=== PATIENT | female | born 1975 | race Caucasian/White ===

== ENCOUNTER 2019-10-27 08:59 | Emergency (ER) | payer MEDICAID, SELFPAY ==
[2019-10-27 09:04] VITALS: BP 129/73; PULSE 94; RESP 18; TEMP 36.7; O2SAT 98; BMI 36.6
--- NOTE | 2019-10-27 09:15 | US_ITS ---
WS: [id number] TRANSABDOMINAL PELVIC AND TRANSVAGINAL PELVIC ULTRASOUND HISTORY: abnormal heavy vaginal bleeding COMPARISON: 02/01/2013 Uterus: 7.6 cm x 4.1 cm x 2.5 cm. Anteverted uterus. Uterus is heterogeneous and poorly visualized du e to body habitus. There is a markedly abnormal appearance to the cervix. Cervix is distended and enlarged and contains mobile mixed echogenic debris along the cervical canal. Endometrium: Markedly enlarged endometrium and endometrial canal. A discrete measurement of the endom etrium is not possible. There is mobile echogenic debris within the endometrium. Diameter of the dist ended endometrium is at least 2.3 cm. There is mixed echogenicity and nodularity along the endometria l canal. Right ovary: 2.9 cm x 2.2 cm x 2.5 cm. Normal size and echogenicity. Left ovary: 3.1 cm x 2.9 cm x 2.1 cm. Normal size and echogenicity. No free fluid. US/US pelvic with transvaginal IMPRESSION: 1. Markedly abnormal endocervical canal. Endocervical canal is distended with mobile echogenic debris consistent with retained blood products. There is also nodularity along the endometrium which could be a polyp or neoplasm which is ca using the bleeding. 2. Recommend CASING CREW evaluation.
--- NOTE | 2019-10-27 09:19 | W.ED.FEMALGU ---
HPI - Female Genitourinary General: Chief complaint: Vaginal Bleeding Stated complaint: Abn pain, bleeding Time Seen by Provider: 10/27/19 09:14 Source: patient Mode of arrival: ambulatory Limitations: no limitations History of Present Illness: HPI Narrative: Patient comes in today for concerns of heavy vaginal bleeding. Patient states that yesterday she had been spotting but this morning she woke up with increased cramping and heavy vaginal bleeding. Patient reports last period was about 6 months ago. Patient appears well. Patient appears in no acute distress. Patient does look in mild to moderate pain. Review of Systems General: Reports: 10 or more systems reviewed and unremarkable except in HPI and below : Reports: vaginal bleeding, painful menstruation and change in menstrual flow PFSH ED PFSH: Statuses (acute, chronic, etc) shown below reflect problem list status as previously entered and may not be historically accurate Social History Smoking and tobacco status: never smoked Physical Exam Const: COMMON NORMALS: no apparent distress and oriented x3 GENERAL APPEARANCE: cooperative HENMT: COMMON NORMALS: normocephalic, external ears normal, EAC's normal, TM's normal bilaterally and external nose normal HEAD & SCALP: normal to inspection and normocephalic FACE & SINUS: normal facial exam NOSE: external nose normal GENERAL EAR: hearing not grossly impaired EXTERNAL EAR: Yes external ears normal EXTERNAL AUDITORY CANAL: EAC's normal TYMPANIC MEMBRANE: TM's normal bilaterally MOUTH: oral and palatal mucosa normal THROAT: posterior oropharynx normal Eye: COMMON NORMALS: PERRL and EOMs intact bilaterally PUPIL: Yes PERRL Neck/C-Spine: COMMON NORMALS: full ROM and no lymphadenopathy Lymph: LYMPHATIC: no lymphedema noted Chest: COMMONS NORMALS: inspection of chest normal and palpation of chest normal Resp: COMMON NORMALS: normal respiratory effort and clear to auscultation bilaterally AUSCULTATION: clear to auscultation bilaterally Cardio: COMMON NORMALS: regular rate and regular rhythm RATE: regular rate RHYTHM: regular rhythm GI: COMMON NORMALS: normal to inspection, nondistended, normoactive bowel sounds and non-tender : COMMON NORMALS: Yes no CVA tenderness BLADDER/KIDNEY EXAM: Yes no CVA tenderness Back/Pelvis: COMMON NORMALS: no CVA tenderness and thoracic and lumbar spine normal to inspection Extremity: COMMON NORMALS: normal to inspection GENERAL: No edema Neuro: COMMON NORMALS: oriented x3, moves all extremities and no focal motor deficits Psych: COMMON NORMALS: mental status grossly normal and cooperative Skin: COMMON NORMALS: no rashes or lesions noted GENERAL SKIN EXAM: no rashes or lesions noted Course ED course: 1112, reviewed US and patient with Dr. Shaw, recommend f/u in office, agreed to plan of OCP titration for bleeding control. wjw Vital Signs: Vital signs: Vital Signs Temperature 98.1 F 10/27/19 09:04 Pulse Rate 81 10/27/19 10:51 Respiratory Rate 18 10/27/19 09:04 Blood Pressure 131/69 10/27/19 10:51 Pulse Oximetry 97 10/27/19 10:51 MDM - Female MDM Narrative: Medical decision making narrative: Patient comes in this morning for concerns of vaginal bleeding. Patient reports that yesterday she had had some spotting and then today started heavily bleeding this morning going through 4 pads and 2 hours. Patient reports some improvement in bleeding since getting to the ER. Patient appears well. Exam notes abdomen is soft with some pelvic tenderness on palpation. Respirations are even lungs are clear to auscultation. Differential diagnosis includes carcinoma, polyp, uterine fibroids, premenopausal syndrome. Mild anemia was noted with a hemoglobin hematocrit at 11.7 and 36.5. Remember laboratory values were normal. Urine showed some red blood cells. Ultrasound of the pelvis noted some abnormalities significant for polyp or other anomaly but nothing conclusive. Consulted Dr. Samaniego who agreed to plan of bleeding control with hormonal therapy and need for follow-up. Lab Data: Labs: Lab Results 10/27/19 10/27/19 10/27/19 Range/Units 09:32 09:39 09:40 WBC 14.3 H (4.0-10.0) 10^3/ uL RBC 4.51 (4.1-5.3) 10^6/u L Hgb 11.7 (11.5-15.3) g/dL Hct 36.5 L (37.0-47.0) % MCV 80.9 L (81-99) fL MCH 25.9 L (28.0-34.0) pg MCHC 32.1 (30.0-36.0) g/dL RDW 13.2 (12.1-15.1) % Plt Count 396 (130-400) 10^3/c mm MPV 9.9 (7.4-10.4) fL Neut % (Auto) 85.1 % Lymph % (Auto) 7.7 % [place] % (Auto) 4.8 % Eos % (Auto) 1.6 % Baso % (Auto) 0.3 % Neut # (Auto) 12.2 H (1.8-7.7) 10^3/u L Lymph # (Auto) 1.1 (0.8-4.8) 10^3/u L [place] # (Auto) 0.7 (0.2-0.9) 10^3/u L Eos # (Auto) 0.2 (0.0-0.8) 10^3/u L Baso # (Auto) 0.0 (0.0-0.1) 10^3/u L Nucleated RBC % (a uto) 0 % Nucleated RBCs # 0.0 /100WBC PT (10.5-13.3) SECO NDS INR (0.8-1.2) APTT (23.9-36.7) SECO NDS Sodium (136-145) mmol/L Potassium (3.5-5.1) mmol/L Chloride (98-107) mmol/L Carbon Dioxide (22-29) mmol/L Anion Gap (5-19) BUN (6-20) mg/dL Creatinine (0.5-0.9) mg/dL GFR Calculation (90-130) mL/min Glucose (74-109) mg/dL POC Glucose 161 (70-110) mg/dL Calcium (8.5-10.5) mg/dL Total Bilirubin (0.15-1.2) mg/dL AST (0-32) U/L ALT (0-33) U/L Alkaline Phosphata se (35-105) IU/L Total Protein (6.6-8.7) g/dL Albumin (3.5-5.2) g/dL Globulin (1.3-4.6) g/dL TSH (0.27-4.20) uIU/ mL HCG, Qual (Negative) Urine Color Yellow (Yellow) Urine Appearance Sl hazy (CLEAR) Urine pH 5 (5-7) Ur Specific Gravit y 1.020 (1.005-1.030) Urine Protein Neg (Negative) Urine Glucose (UA) Trace H (Normal) Urine Ketones 1+ H (Negative) Urine Occult Blood 3+ H (Negative) Urine Nitrate Negative (Negative) Urine Bilirubin Neg (NEGATIVE) Urine Urobilinogen Norm (Negative) mg/dL Ur Leukocyte Hermelinda ase Negative (Negative) Urine RBC 40-50 H (0-2) /hpf Urine WBC 5-10 H (0-5) /hpf Ur Squamous Epith Cells 10-15 H (0-5) Urine Bacteria 1+ H (NONE) Hyaline Casts Rare Urine Mucus 1+ 10/27/19 10/27/19 10/27/19 Range/Units 09:40 09:40 09:40 WBC (4.0-10.0) 10^3/ uL RBC (4.1-5.3) 10^6/u L Hgb (11.5-15.3) g/dL Hct (37.0-47.0) % MCV (81-99) fL MCH (28.0-34.0) pg MCHC (30.0-36.0) g/dL RDW (12.1-15.1) % Plt Count (130-400) 10^3/c mm MPV (7.4-10.4) fL Neut % (Auto) % Lymph % (Auto) % [place] % (Auto) % Eos % (Auto) % Baso % (Auto) % Neut # (Auto) (1.8-7.7) 10^3/u L Lymph # (Auto) (0.8-4.8) 10^3/u L [place] # (Auto) (0.2-0.9) 10^3/u L Eos # (Auto) (0.0-0.8) 10^3/u L Baso # (Auto) (0.0-0.1) 10^3/u L Nucleated RBC % (a uto) % Nucleated RBCs # /100WBC PT 13.80 H (10.5-13.3) SECO NDS INR 1.03 (0.8-1.2) APTT 24.1 (23.9-36.7) SECO NDS Sodium 136 (136-145) mmol/L Potassium 4.3 (3.5-5.1) mmol/L Chloride 101 (98-107) mmol/L Carbon Dioxide 23 (22-29) mmol/L Anion Gap 16.3 (5-19) BUN 9 (6-20) mg/dL Creatinine 0.8 (0.5-0.9) mg/dL GFR Calculation 77.9 L (90-130) mL/min Glucose 190 H (74-109) mg/dL POC Glucose (70-110) mg/dL Calcium 9.5 (8.5-10.5) mg/dL Total Bilirubin 0.2 (0.15-1.2) mg/dL AST 18 (0-32) U/L ALT 7 (0-33) U/L Alkaline Phosphata se 100 (35-105) IU/L Total Protein 6.6 (6.6-8.7) g/dL Albumin 4.3 (3.5-5.2) g/dL Globulin 2.3 (1.3-4.6) g/dL TSH 1.29 (0.27-4.20) uIU/ mL HCG, Qual Negative (Negative) Urine Color (Yellow) Urine Appearance (CLEAR) Urine pH (5-7) Ur Specific Gravit y (1.005-1.030) Urine Protein (Negative) Urine Glucose (UA) (Normal) Urine Ketones (Negative) Urine Occult Blood (Negative) Urine Nitrate (Negative) Urine Bilirubin (NEGATIVE) Urine Urobilinogen (Negative) mg/dL Ur Leukocyte Hermelinda ase (Negative) Urine RBC (0-2) /hpf Urine WBC (0-5) /hpf Ur Squamous Epith Cells (0-5) Urine Bacteria (NONE) Hyaline Casts Urine Mucus Imaging Data: US: Radiologist's impression: 1. Markedly abnormal endocervical canal. Endocervical canal is distended with mobile echogenic debris consistent with retained blood products. There is also nodularity along the endometrium which could be a polyp or neoplasm which is causing the bleeding. 2. Recommend SERVICE STATION MANAGER evaluation. Discharge Plan Discharge Patient Disposition: Home, Self-Care Clinical Impression: Dysfunctional uterine bleeding Condition: Stable Prescriptions: New [place] 3 mg/2 mg-2 mg/ 2 mg-3 mg/1 mg tablet 1 tab PO DAILY Qty: 28 RF: 2 hydrocodone-acetaminophen 5-325 mg tablet 1 tab PO Q6H PRN (Reason: pain) Qty: 10 RF: 0 No Action tizanidine 2 mg Tablet 2 mg PO Q12H RF: 0 trazodone 50 mg Tablet See Rx Instructions .ROUTE .COMPLEX RF: 0 cetirizine [Zyrtec] 10 mg Tablet 10 mg PO DAILY RF: 0 meloxicam [Mobic] 15 mg Tablet 15 mg PO DAILY RF: 0 amitriptyline 50 mg Tablet 50 mg PO BEDTIME RF: 0 bupropion HCl 100 mg Tablet Sustained-Release 12 Hr 100 mg PO BID RF: 0 ranitidine HCl [Zantac] 150 mg Tablet 150 mg PO BID RF: 0 buspirone 10 mg Tablet 10 mg PO TID RF: 0 montelukast [Singulair] 10 mg Tablet 10 mg PO DAILY RF: 0 verapamil 80 mg Tablet 80 mg PO TID RF: 0 Discharge Orders: Discharge Order (Routine); Ordered 10/27/19 Ordered By: Tu Santos Referrals: Sergey Crockett [Primary Care Provider] - Discharge Diet: Usual diet Discharge Activity: Increase activity as tolerated Patient Instructions: Abnormal Uterine Bleeding Activity Restrictions/Additional Instructions: Drink plenty of water with medications Take control pill as directed, 3 tablets for 2 days, 2 tablets for 2 days, then complete routine pack as one daily, skip the placebo days as directed by pharmacist and start new pack, and take routinely Follow-up in one week with OB-SERVICE STATION MANAGER An appointment has been made for November [address] Singh Return to ER for fever or worsening symptoms Coding Level of Care Code ED Regulatory Affairs Intern for Omayra Espitia Exam Problem Focused
[2019-10-27 09:36] LABS: Glucose Point of Care 161 mg/dL (70-110)
--- NOTE | 2019-10-27 09:47 | PC.NURSE ---
portable ultrasound at bedside
[2019-10-27 09:50] LABS: Basophils % 0.3 %; Eosinophils # 0.2 10^3/uL (0.0-0.8); Eosinophils % 1.6 %; Hematocrit 36.5 % (37.0-47.0); Hemoglobin 11.7 g/dL (11.5-15.3); Lymphocytes # 1.1 10^3/uL (0.8-4.8); Lymphocytes % 7.7 %; Mean Corpuscular HGB Conc 32.1 g/dL (30.0-36.0); Mean Corpuscular Hemoglobin 25.9 pg (28.0-34.0); Mean Corpuscular Volume 80.9 fL (81-99); Mean Platelet Volume 9.9 fL (7.4-10.4); Monocytes # 0.7 10^3/uL (0.2-0.9); Monocytes % 4.8 %; Neutrophils # 12.2 10^3/uL (1.8-7.7); Neutrophils % 85.1 %; Nucleated Red Blood Cells % 0 %; Platelet Count 396 10^3/cmm (130-400); Red Blood Count 4.51 10^6/uL (4.1-5.3); Red Cell Distribution Width 13.2 % (12.1-15.1); White Blood Count 14.3 10^3/uL (4.0-10.0)
[2019-10-27] MEDS: sodium chloride 0.9% 500 ML IV (09:53)
[2019-10-27] MEDS: HYDROcodone-acetaminophen 7.5-325 mg Tablet 1 TAB PO (09:53)
[2019-10-27] MEDS: ondansetron 2 mg/ML SDV 2 mL 4 MG IVP (09:53)
[2019-10-27 10:00] LABS: INR 1.03 (0.8-1.2)
[2019-10-27 10:01] LABS: HCG, Serum Qual Negative (Negative); Partial Thromboplastin Time 24.1 SECONDS (23.9-36.7)
[2019-10-27 10:15] LABS: Alanine Aminotransferase 7 U/L (0-33); Albumin Level 4.3 g/dL (3.5-5.2); Alkaline Phosphatase 100 IU/L (35-105); Anion Gap 16.3 (5-19); Aspartate Amino Transferase 18 U/L (0-32); Blood Urea Nitrogen 9 mg/dL (6-20); Calcium 9.5 mg/dL (8.5-10.5); Carbon Dioxide 23 mmol/L (22-29); Chloride 101 mmol/L (98-107); Globulin 2.3 g/dL (1.3-4.6); Glomerular Filtration Rate 77.9 mL/min (90-130); Glucose 190 mg/dL (74-109); Potassium 4.3 mmol/L (3.5-5.1); Sodium 136 mmol/L (136-145); Thyroid Stimulating Hormone 1.29 uIU/mL (0.27-4.20); Total Bilirubin 0.2 mg/dL (0.15-1.2); Total Protein 6.6 g/dL (6.6-8.7)
[2019-10-27 10:17] LABS: Bilirubin Urine Neg (NEGATIVE); Blood Urine 3+ (Negative); Glucose Urine UA Trace (Normal); Ketones Urine 1+ (Negative); Leukocyte Esterase Urine Negative (Negative); Nitrate Urine Negative (Negative); Protein Urine Neg (Negative); Urine Appearance SL Hazy (CLEAR); Urine Color Yellow (Yellow); Urobilinogen Urine Norm (Negative); pH Urine 5 (5-7)
[2019-10-27 10:19] LABS: Hyaline Casts Urine RARE; Mucus Urine 1+
[2019-10-27 10:20] LABS: Bacteria Urine 1+
[2019-10-27 10:21] LABS: Add Urine Culture? Yes; RBC Urine 40-50 /hpf (0-2)
[2019-10-27 10:51] VITALS: BP 131/69; PULSE 81; O2SAT 97
[2019-10-27] MEDS: ketorolac 30 mg/mL INJ 15 MG IVP (11:23)
[2019-10-27 11:27] VITALS: BP 117/70; PULSE 84; O2SAT 97
== END 2019-10-27 11:27 | disposition home or self-care (01) ==
PROVIDERS: Emergency Provider Nurse Practitioner Family; Family Provider Family Medicine; PCP Family Medicine
DX: N93.8 Other specified abnormal uterine and vaginal bleeding (principal)
CPT/HCPCS: 36415; 36416; 76830; 76856; 80053; 81001; 82962; 84443; 84703; 85025; 85610; 85730; 87086; 96360; 96374; 99282; A9270; J1885; J2405; J7040

== ENCOUNTER → 2019-11-06 11:25 | Outpatient (BNVA) | payer MEDICAID, SELFPAY | PROVIDERS: Family Provider Family Medicine; PCP Family Medicine; Visit Provider Obstetrics & Gynecology | DX: E28.2 Polycystic ovarian syndrome (principal); N93.9 Abnormal uterine and vaginal bleeding, unspecified | CPT/HCPCS: 83001; 84146; 84443 ==

== ENCOUNTER → 2019-11-13 08:08 | Outpatient (BNVA) | payer MEDICAID, SELFPAY | PROVIDERS: Family Provider Family Medicine; PCP Family Medicine; Referring Provider Obstetrics & Gynecology; Visit Provider Obstetrics & Gynecology | DX: N93.9 Abnormal uterine and vaginal bleeding, unspecified (principal); R10.2 Pelvic and perineal pain | CPT/HCPCS: 76830; 76856 ==

== ENCOUNTER → 2019-11-21 08:45 | Outpatient (BNVA) | payer MEDICAID, SELFPAY | PROVIDERS: Family Provider Family Medicine; PCP Family Medicine; Referring Provider Obstetrics & Gynecology; Visit Provider Obstetrics & Gynecology | DX: N93.9 Abnormal uterine and vaginal bleeding, unspecified (principal) | CPT/HCPCS: 84146 ==

== ENCOUNTER → 2019-11-30 13:26 | Outpatient (BNVA) | payer MEDICAID, SELFPAY | PROVIDERS: Family Provider Family Medicine; PCP Family Medicine; Visit Provider Obstetrics & Gynecology | DX: E28.2 Polycystic ovarian syndrome (principal) | CPT/HCPCS: 81025 ==

== ENCOUNTER 2019-12-20 07:09 | Day surgery (SDC) | payer MEDICAID, SELFPAY ==
--- NOTE | 2019-12-18 12:18 | ANES.PREANE2 ---
Pre-Anesthetic Assessment Pre-Anesthetic Assessment: Height/Weight: Height 1.65 m Weight 104.326 kg Preop Diagnosis: heavy menstrual bleeding Proposed Procedure: Operation Date: 12/20/19 08:50 Proposed Procedures p Hysteroscopy w/ Myosure 29376 [id number] N93.9(Not Applicable) - Mango Singh MD s Dilation And Curettage (D&C)/Paracervical Block(Not Applicable) - Mango Singh MD Exam: Pre-Anes Outpt Exam: alert, oriented x 3, clear to auscultation bilaterally and regular rate & rhythm Airway: Submandibular: WNL Cervical ROM: WNL MP: 2 Pulmonary: Pulmonary: Asthma Comments: seasonal asthma without inhaler x 1y, breathing feels good GI: GI: GERD Comments: IBS well controlled with ranitinde Metabolic: Metabolic: DM Comments: diet controlled Musc/skel: Musc/skel: Lower Back Pain Comments: nonradiating Neuropsych: Neuropsych: Depression and GUTIERREZ (migranes, last 12/16) Anesthetic Plan: ASA status: 3 Anesthesia: General PFSH Anesthesia PFSH: Social History Smoking and tobacco status: never smoked Alcohol intake: never Female Reproductive History: Date of last menstrual period: 12/18/19 Data Anesthesia Cardiac Studies: No Data to Display
[2019-12-20] VITALS (7 sets, daily range): BP systolic 110–174; BP diastolic 81–99; PULSE 114–128; RESP 14–27; TEMP 36.2–36.6; O2SAT 97–100
[2019-12-20 07:51] LABS: OR HCG Qualitative Urine Negative (Negative)
[2019-12-20] MEDS: ketorolac 30 mg/mL INJ IVP (07:51)
[2019-12-20] MEDS: sodium chloride 0.9% 1,000 ML 30 ML IV (07:52)
[2019-12-20 08:02] LABS: Basophils % 0.5 %; Eosinophils # 0.3 10^3/uL (0.0-0.8); Eosinophils % 3.9 %; Hematocrit 33.6 % (37.0-47.0); Hemoglobin 10.7 g/dL (11.5-15.3); Lymphocytes # 1.5 10^3/uL (0.8-4.8); Lymphocytes % 17.6 %; Mean Corpuscular HGB Conc 31.8 g/dL (30.0-36.0); Mean Corpuscular Hemoglobin 25.7 pg (28.0-34.0); Mean Corpuscular Volume 80.6 fL (81-99); Mean Platelet Volume 9.8 fL (7.4-10.4); Monocytes # 0.8 10^3/uL (0.2-0.9); Monocytes % 9.5 %; Neutrophils # 5.8 10^3/uL (1.8-7.7); Nucleated Red Blood Cells % 0 %; Platelet Count 367 10^3/cmm (130-400); Red Blood Count 4.17 10^6/uL (4.1-5.3); Red Cell Distribution Width 12.8 % (12.1-15.1); White Blood Count 8.5 10^3/uL (4.0-10.0)
--- NOTE | 2019-12-20 08:03 | P.ANESUD_ITS ---
Pre-Anesthetic Update Pre-Anesthetic Assessment: Date of Surgery/Procedure: 12/20/19 Preop Hilda gnosis: Abnormal uterine bleeding, endometrial polyp Proposed Procedure: Operation Date: 12/20/19 08:50 Proposed Procedures p Hysteroscopy w/ Myosure 22219 [id number] 54403 N93.9(Not Applicable) - Mango Singh MD s Dilation And Curettage (D&C)/Paracervical Block(Not Applicable) - Mango Singh MD Last Intake: Intake Last Liquid Date 12/19/19 Last Liquid Time 20:00 Last Solid Date 12/19/19 Last Solid Time 20:00 Labs Last 48hrs: Laboratory Results - last 48 hr 12/20/19 12/20/19 07:39 07:50 WBC 8.5 RBC 4.17 Hgb 10.7 L Hct 33.6 L MCV 80.6 L MCH 25.7 L MCHC 31.8 RDW 12.8 Plt Count 367 MPV 9.8 Neut % (Auto) 68.0 Lymph % (Auto) 17.6 [place] % (Auto) 9.5 Eos % (Auto) 3.9 Baso % (Auto) 0.5 Neut # (Auto) 5.8 Lymph # (Auto) 1.5 [place] # (Auto) 0.8 Eos # (Auto) 0.3 Baso # (Auto) 0.0 Nucleated RBC % (a uto) 0 Nucleated RBCs # 0.0 Urine HCG, Qual Negative Vitals: Temperature 97.1 F L 12/20/19 07:37 Temperature Source Temporal Artery S can 12/20/19 07:37 Pulse Rate 114 H 12/20/19 07:37 Respiratory Rate 18 12/20/19 07:37 Blood Pressure 125/95 12/20/19 07:37 Blood Pressure Henny n 105 12/20/19 07:37 Pulse Oximetry 99 12/20/19 07:37 Oxygen Delivery Me thod 12/20/19 07:37 Cardiac Studies: No Data to Display
[2019-12-20 08:08] LABS: Add Urine Microscopic? YES; Bilirubin Urine Neg (NEGATIVE); Blood Urine 3+ (Negative); Glucose Urine UA Norm (Normal); Ketones Urine Negative (Negative); Leukocyte Esterase Urine Negative (Negative); Nitrate Urine Negative (Negative); Protein Urine Neg (Negative); Specific Gravity, Urine 1.015 (1.005-1.030); Urine Appearance Hazy (CLEAR); Urine Color Yellow (Yellow); Urobilinogen Urine Norm (Negative); pH Urine 6 (5-7)
[2019-12-20 08:17] LABS: Anion Gap 14.5 (5-19); Blood Urea Nitrogen 10 mg/dL (6-20); Carbon Dioxide 22 mmol/L (22-29); Chloride 106 mmol/L (98-107); Glomerular Filtration Rate 77.9 mL/min (90-130); Glucose 149 mg/dL (65-115); Osmolality Calculated 285 mOsm/kg (285-295); Potassium 4.5 mmol/L (3.5-5.1); Sodium 138 mmol/L (136-145)
[2019-12-20 08:33] LABS: Add Urine Culture? No; Bacteria Urine 1+; Squamous Epithelial Cell Urine 15-25 (0-5); WBC Urine RARE /hpf (0-5)
[2019-12-20 09:15] LABS: Glucose Point of Care 130 mg/dL (70-110)
--- NOTE | 2019-12-20 09:21 | W.PM.OPSUD ---
Surgery/Procedure H&P Update DATE OF PROCEDURE: December 20, 2019 DATE H&P PERFORMED: 12/18/19 H&P UPDATE INFORMATION: I have reviewed H&P completed within last 30 days and I have examined patient prior to procedure PREOP DIAGNOSIS: Abnormal uterine bleeding, endometrial polyp PLANNED PROCEDURE: Operation Date: 12/20/19 08:50 Proposed Procedures p Hysteroscopy w/ Myosure [id number] 55586 N93.9(Not Applicable) - Mango Singh MD s Dilation And Curettage (D&C)/Paracervical Block(Not Applicable) - Mango Singh MD
--- NOTE | 2019-12-20 10:17 | PM.OP ---
Operative Report Date of procedure: December 20, 2019 Pre-op Diagnosis: Abnormal uterine bleeding, endometrial polyp Post-op Diagnosis: abnormal uterine bleeding, endometrial hyperplasia Post-op Findings: irregular endometrium Procedure Done: hysteroscopy with D&C via MyoSure Specimens removed/disposition: endometrial curettings Surgeon: Mango Singh Anesthesia: General Estimated blood loss (mL): 5 Complications: none Condition: stable Disposition: PACU Brief History: 44-year-old female with history of PCOS and abnormal uterine bleeding. Procedure: After informed consent, the risks included but were not limited to bleeding, infection, injury to internal organs. The patient was counseled on a possible laparotomy and on the potential need for hysterectomy. The patient expressed understanding of the risks involved, all questions were answered, and the patient consented to the procedure. The patient was taken to the operating room where general anesthesia was administered. She was placed in the dorsal lithotomy position and prepped and draped in sterile fashion. A time out procedure was performed. The patient was examined under anesthesia and found to have a normal uterus with normal adnexa. A sterile weight speculum was placed in the vagina. The uterus was then gently sounded to 10 cm, and the cervix was dilated. The 0 degrees MyoSure hysteroscope was advanced gently to the uterine fundus while visualizing the monitor. Survey of the uterine cavity showed: irregular endometrium on left lateral wall, the fundus shows irregular endometrium; left ostium was visualized, and lateral wall with irregular endometrium; right ostium visualized, and lateral wall with proliferative endometrium; anterior and posterior duke are with proliferative endometrium; endocervical canal is normal. The MyoSure device was advanced and the direct visualization the irregular proliferative endometrium was morcellated without complication. At the end of morcellation the fluid deficit was 600 mL and was estimated at approximately 500 mL were on the floor. There was minimal bleeding noted and the tenaculum removed with goad hemostasis noted. The patient tolerated the procedure well. The patient was taken to the recovery area in stable condition.
[2019-12-20] MEDS: ondansetron 2 mg/ML SDV 2 mL 4 MG IVP (10:30)
== END 2019-12-20 11:41 | disposition home or self-care (01) ==
PROVIDERS: Family Provider Family Medicine; PCP Family Medicine; Visit Provider Obstetrics & Gynecology
PROC: 0UDB8ZZ Extraction of Endometrium, Via Natural or Artificial Opening Endoscopic (ICD-10-PCS; CPT 58558; principal; 2019-12-20 08:50)
PROC: (CPT 58120; 2019-12-20 08:50)
DX: N84.0 Polyp of corpus uteri (principal); N93.9 Abnormal uterine and vaginal bleeding, unspecified; Z79.82 Long term (current) use of aspirin; E28.2 Polycystic ovarian syndrome; Z83.3 Family history of diabetes mellitus; Z82.49 Family history of ischemic heart disease and other diseases of the circulatory system; J45.909 Unspecified asthma, uncomplicated; E11.9 Type 2 diabetes mellitus without complications
CPT/HCPCS: 58558; 12345; 36415; 36416; 80048; 81001; 81025; 82962; 84703; 85025; 86850; 86900; 88305; 96365; 96374; J1885; J2001; J2405; J2704; J3010; J3370; J3490; J7030; J7050

== ENCOUNTER 2020-08-21 12:55 | Outpatient (CLI) | payer MEDICAID, SELFPAY ==
--- NOTE | 2020-08-21 13:03 | XR_ITS ---
WS: [id number] Exam: XR lumbar spine 2-3V* [id number] Date/Time of Exam: 08/21/2020 1:03 PM Reason For Exam: LOWER BACK PAIN/BACK SPURS Comparison 08/23/2018. No fracture or dislocation. Minimal spondylosis and degenerative disc change. Posterior elements are intact. No significant scoliosis. Mild DJD of the SI joints. XR/XR lumbar spine 2-3V* [id number] IMPRESSION: 1. Very minimal degenerative changes. 2. No fracture or malalignment.
== END 2020-08-21 12:56 | disposition home or self-care (01) ==
LOC: RAD 12:57
PROVIDERS: PCP Family Medicine; Visit Provider Dermatology
DX: M54.5 Low back pain (principal); M77.8 Other enthesopathies, not elsewhere classified
CPT/HCPCS: 72100

== ENCOUNTER → 2021-12-09 09:00 | Outpatient (BNVA) | payer MEDICAID, SELFPAY | PROVIDERS: PCP Family Medicine; Visit Provider Obstetrics & Gynecology | DX: Z12.4 Encounter for screening for malignant neoplasm of cervix (principal) | CPT/HCPCS: 87624 ==

== ENCOUNTER 2022-01-12 10:05 | Outpatient (CLI) | payer MEDICAID, SELFPAY ==
--- NOTE | 2022-01-12 10:14 | MM_ITS ---
WS: [id number] BILATERAL SCREENING 3D TOMOSYNTHESIS DIGITAL MAMMOGRAM WITH CAD HISTORY: SCREENING COMPARISON: 04/20/2019 and 07/12/2017 Bilateral CC and MLO views submitted. Computer aided detection analyzed. Breast composition: The breasts are heterogeneously dense, which may obscure small masses. No suspici ous masses, microcalcifications or architectural distortion. MM/[place] [id number] IMPRESSION: BI-RADS: 1-Negative FOLLOW UP: 1 Year Follow-up
== END 2022-01-12 10:06 | disposition home or self-care (01) ==
LOC: RAD 10:08
PROVIDERS: PCP Family Medicine; Visit Provider Obstetrics & Gynecology
DX: Z12.31 Encounter for screening mammogram for malignant neoplasm of breast (principal)
CPT/HCPCS: 77063; 77067

== ENCOUNTER 2023-01-13 09:36 | Outpatient (CLI) | payer MEDICAID, SELFPAY ==
--- NOTE | 2023-01-13 09:45 | MM_ITS ---
WS: [id number] BILATERAL SCREENING DIGITAL TOMOSYNTHESIS MAMMOGRAM WITH CAD HISTORY: Z12.39 - Encounter for other screening for malignant neop... COMPARISON: 01/12/2022, 04/10/2019 and 07/12/2017 Bilateral CC and MLO views with tomosynthesis and synthetic mammography submitted. Computer aided det ection analyzed. Breast composition: There are scattered areas of fibroglandular density. No suspicious masses, microc alcifications or architectural distortion. Linear area of increased density in the posterior RIGHT br east is similar to the study from 2017. There are additional scattered calcifications and asymmetries which are stable. MM/[place] [id number] IMPRESSION: BI-RADS: 2-Benign FOLLOW UP: 1 Year Follow-up
== END 2023-01-13 09:37 | disposition home or self-care (01) ==
LOC: RAD 09:41
PROVIDERS: PCP Family Medicine; Visit Provider Nurse Practitioner Women's Health
DX: Z12.31 Encounter for screening mammogram for malignant neoplasm of breast (principal)
CPT/HCPCS: 77063; 77067

== ENCOUNTER 2024-01-17 10:02 | Outpatient (CLI) | payer MEDICAID, SELFPAY ==
--- NOTE | 2024-01-17 10:30 | MM_ITS ---
WS: [id number] BILATERAL SCREENING DIGITAL TOMOSYNTHESIS MAMMOGRAM WITH CAD HISTORY: Z12.39 - Encounter for other screening for malignant neop... COMPARISON: 01/13/2023, 01/12/2022 and 01/13/2023 Bilateral CC and MLO views with tomosynthesis and synthetic mammography submitted. Computer aided det ection analyzed. Breast composition: There are scattered areas of fibroglandular density. No suspicious masses, microc alcifications or architectural distortion. Benign calcifications in each breast. No distortion. IMPRESSION: MM/[place] [id number] BI-RADS: 2-Benign FOLLOW UP: 1 Year Follow-up
== END 2024-01-17 10:03 | disposition home or self-care (01) ==
LOC: RAD 10:03
PROVIDERS: PCP Family Medicine; Visit Provider Nurse Practitioner Women's Health
DX: Z12.31 Encounter for screening mammogram for malignant neoplasm of breast (principal)
CPT/HCPCS: 77063; 77067

== ENCOUNTER → 2024-02-11 08:46 | Outpatient (BNVA) | payer MEDICAID, SELFPAY | PROVIDERS: PCP Family Medicine; Visit Provider Nurse Practitioner Family | DX: L72.0 Epidermal cyst (principal); L30.4 Erythema intertrigo; D22.5 Melanocytic nevi of trunk | CPT/HCPCS: 99204 ==

== ENCOUNTER → 2024-02-29 14:57 | Outpatient (BNVA) | payer MEDICAID, SELFPAY | PROVIDERS: PCP Family Medicine; Visit Provider Specialist | DX: R20.0 Anesthesia of skin (principal); R20.2 Paresthesia of skin | CPT/HCPCS: 95909; 95910 ==

== ENCOUNTER → 2024-03-09 09:36 | Outpatient (BNVA) | payer MEDICAID, SELFPAY | PROVIDERS: PCP Family Medicine; Visit Provider Nurse Practitioner Family | DX: L30.4 Erythema intertrigo (principal); L20.89 Other atopic dermatitis; D22.5 Melanocytic nevi of trunk; L60.8 Other nail disorders | CPT/HCPCS: 99214 ==

== ENCOUNTER → 2024-03-16 08:39 | Outpatient (BNVA) | payer MEDICAID, SELFPAY | PROVIDERS: PCP Family Medicine; Visit Provider Dermatology | DX: D17.1 Benign lipomatous neoplasm of skin and subcutaneous tissue of trunk (principal); L20.89 Other atopic dermatitis | CPT/HCPCS: 99214 ==

== ENCOUNTER 2025-04-09 09:07 | Outpatient (CLI) | payer MEDICAID, SELFPAY ==
--- NOTE | 2025-04-09 09:11 | MM_ITS ---
WS: [id number] VIEWS: MLO and CC views both breasts. 3D digital tomosynthesis is also included in this exam. Comparison made with prior exam of 02/19/2012, 02/28/2013, 03/06/2014, 03/28/2015, 03/30/2016, 07/12/2017, 04/10/2019, 01/12/2022, 01/13/2023, 01/17/2024.. Findings: The breasts are heterogeneously dense, which may obscure small masses. No sign of suspicious mass, tumor calcification or architectural distortion. MM/MM scr BI tomosynthesis [id number] Impression: BI-RADS: 2 - Benign FOLLOW-UP: 1 Year Follow-up This mammogram was also analyzed by the Computer Aided Detection System R2 Imag e Video Editor.
== END 2025-04-09 09:08 | disposition home or self-care (01) ==
LOC: RAD 09:07
PROVIDERS: PCP Family Medicine; Visit Provider Family Medicine
DX: Z12.31 Encounter for screening mammogram for malignant neoplasm of breast (principal); R92.323 Mammographic fibroglandular density, bilateral breasts
CPT/HCPCS: 77063; 77067